=== PATIENT | male | born 1955 | race African-American/Black ===

== ENCOUNTER 2017-07-27 08:00 | Inpatient (IN) | payer OTHER ==
[2017-07-15 14:32] VITALS: BMI 40.6
[2017-07-27] MEDS ORDERED: oxyCODONE HCL 10 MG SUSTAINED ACTING TABLET ONE (10:52)
[2017-07-27] MEDS ORDERED: CELECOXIB 200 MG CAPSULE ONE (10:53)
[2017-07-27] MEDS ORDERED: oxyCODONE HCL 10 MG SUSTAINED ACTING TABLET PO ONE (12:15)
[2017-07-27] MEDS ORDERED: ROPIVICAINE 0.2%/MORPH PF/KETOROLAC - 51ML DISP.SYRINGE IA ONE (12:15)
[2017-07-27] MEDS ORDERED: CEFAZOLIN 2 GM in DEXTROSE 5%-WATER - 50 ML IVPB ONE (12:15)
[2017-07-27] MEDS ORDERED: VANCOMYCIN 1,000 MG in DEXTROSE 5%-WATER - 250 ML IVPB ONE (12:15)
[2017-07-27] MEDS ORDERED: CELECOXIB 200 MG CAPSULE PO ONE (12:15)
[2017-07-27] MEDS ORDERED: TRANEXAMIC ACID 1000 MG/10 ML VIAL IVPUSH ONE (12:15)
[2017-07-27] MEDS ORDERED: DEXAMETHASONE SOD PHOSPHATE/PF 10 MG/ML SDV ONE (12:48)
[2017-07-27] MEDS ORDERED: MIDAZOLAM HCL 2 MG/2 ML SINGLE DOSE VIAL ONE ×4 (12:48→16:17)
[2017-07-27] MEDS ORDERED: BUPIVACAINE HCL/PF (5 MG/ML) 30 ML VIAL IJ ONE (12:49)
[2017-07-27] MEDS: DEXTROSE 50%-WATER 25 GM/50 ML DISP.SYRIN IVPUSH ONE ×2 (13:50→19:35)
[2017-07-27] MEDS ORDERED: DEXTROSE 50%-WATER 25 GM/50 ML DISP.SYRIN ONE (13:52)
[2017-07-27] MEDS ORDERED: TRANEXAMIC ACID 1000 MG/10 ML VIAL ONE (15:31)
[2017-07-27] MEDS ORDERED: ePHEDrine SULFATE 50 MG/1 ML AMPULE ONE (16:09)
[2017-07-27] MEDS ORDERED: ceFAZolin SODIUM 1 GM VIAL ONE ×3 (16:13→17:23)
[2017-07-27] MEDS ORDERED: VANCOMYCIN 1,000 MG VIAL (RESTRICTED TO ID ONLY) ONE (16:20)
[2017-07-27] MEDS ORDERED: PROPOFOL 20 ML ONE ×3 (16:51→17:20)
--- NOTE | 2017-07-27 18:39 | OP ---
Operative Note - Note: Operative Date: 07/27/17 Pre-Operative Diagnosis: Right hip DJD Operation: Right total hip replacement Implants: [place]. Cup - Tritanium, 56mm, 1 x 25mm screw. Poly - 28mm, neutral. Stem - SecureFit Advanced, #6, 127 deg, high offset. Head - 28mm, Biolox/ceramic, +4mm Post-Operative Diagnosis: Same as Pre-op Surgeon: Medardo Randolph Roastmaster: Senthil Randolph Anesthesia: Spinal Specimens Removed: Right femoral head Estimated Blood Loss (mls): 250 Operative Report Dictated: Yes
[2017-07-27] MEDS ORDERED: MAG HYDROX/AL HYDROX/SIMETH 30 ML UNIT-DOSE CUP PO PRN (18:40)
[2017-07-27] MEDS ORDERED: ONDANSETRON 4 MG/2 ML VIAL IVPUSH PRN ×2 (18:40→18:44)
[2017-07-27] MEDS ORDERED: MAGNESIUM HYDROX 2400MG/30ML ORAL SUSPENSION 30 ML CUP PO PRN (18:40)
[2017-07-27] MEDS ORDERED: oxyCODONE HCL 5 MG TABLET PO PRN (18:44)
[2017-07-27] MEDS ORDERED: LACTATED RINGERS SOLUTION 1,000 ML IV SCH ×2 (18:45)
[2017-07-27] MEDS: ACETAMINOPHEN 1000 MG/100 ML VIAL (NON FORMULARY) IVPB ONE ×2 (19:15→19:39)
--- NOTE | 2017-07-27 21:05 | OP ---
DATE OF OPERATION: 07/27/2017 SURGEON: Medardo Randolph MD ASSOCIATE PROFESSOR OF THEOLOGY: Senthil Randolph MD PREOPERATIVE DIAGNOSIS: Osteoarthritis, right hip. POSTOPERATIVE DIAGNOSIS: Osteoarthritis, right hip. OPERATION PERFORMED: Right cementless total hip arthroplasty (Ela). ANESTHESIA: Spinal/epidural with general anesthesia. ANTIBIOTICS GIVEN: Kefzol 2 g, vancomycin 1 g, Kefzol 1 g given at the time of the seating of femoral components. OPERATION IN DETAIL: The patient was correctly identified, brought into the operating room. Timeout was called. The right lower extremity was prepped, free draped in the routine manner with Betadine scrub solution, wiped off with alcohol, DuraPrep applied. A free drape applied. Imaging was available for intraoperative evaluation. The patient has left-sided tibial bowing and dysplasia. The incision was centered over the greater trochanter. The distal limb started anteriorly at the anterior margin of the femur. The posterior limb ended in line with the posterior corner of the trochanter. The fascia was opened. After achieving hemostasis in the subcutaneous plane, the fascia was opened. The hip abductor mechanism identified. Using an anterior-biased, direct lateral approach, with difficulty, we had unusual anatomical findings with protuberant osteophyte over the anterior greater trochanter, but more importantly, once the hip was dissected out and the capsule lifted off the hip from the superolateral aspect of the acetabulum to the inferomedial aspect of the acetabulum, including 2 radial cuts made into the capsule, the hip was dislocated with flexion, adduction, and external rotation maneuver with no complications, but I clearly noted that the hip had almost 60-degree anteverted dysplasia, severe osteoarthritis encountered. With the tibia held in neutral, that is vertical, the neck cut was made in accordance with the principles of Charnley, and this was approximately 1 cm above the lesser trochanter. The hip was then extricated out of the appropriate bone bed. The acetabulum was exposed with an anterior, posterior, superolateral as well as inferior retractor. All labral tissue was resected. Reaming was to a size 55, and a size 56 Ela Tritanium cup inserted. Once 25-mm screw helped to augment fixation, fixation was Press-Fit fixation which was excellent, but my choice was to seat a screw because of this man's large stature and the subtle osteopenia of the bone bed. A solid fixation achieved with that screw. The liner for 28-mm articulation was then inserted. The cup seating was uncomplicated. The cup was closed at about 45 degrees and about 15 degrees of anteversion. Some soft tissue rub anteriorly was noted on the anterior lip of the cup. Some posterior remaining bone of the posterior ischium was resected because of predicted impingement on the back of the trunnion. The hip was adducted, externally rotated. The hip abductor mechanism was held out of harm's way with 2 sharp Hohmanns. A rongeur was utilized to enter the trochanter and then followed with an appropriate box cut. With difficulty, the canal was found. Luckily and happy to report that the alignment of the dysplastic proximal femur did line up with the femoral area. The reaming was to size 6, and a size 6 Secur-Fit Advanced stem was inserted after appropriate broaching and trialing. A +4/28-mm ceramic head applied to the trunnion after all trialing was achieved. The stem was a high-offset stem. Equal leg length achieved on the table. Full range of movement. No complications with internal rotation, as well as extension and external rotation. The wounds were thoroughly lavaged throughout the procedure. With great satisfaction of seating and implant positioning, we closed the wound as well as the hip abductor mechanism 1 Vicryl, fascia 1 Vicryl, subcutaneous 1 and 2-0 Vicryl, skin cain. No drains. Operation went well. No complications. MD SOHAM Martinez/[id number]
[2017-07-27] MEDS: oxyCODONE HCL 5 MG TABLET PO PRN (21:10)
--- NOTE | 2017-07-27 21:13 | CONSULT ---
Consultation: REQUESTING PROVIDER: Dr. Medardo Randolph CONSULT REQUEST: We have been asked to medically evaluate this patient following right total hip replacement on 07/27/17. HISTORY OF PRESENT ILLNESS: 61 year-old male with a PMH significant for HTN, HLD, afib/aflutter, NIDDM, and obsesity. Underwent right total hip replacement earlier today. REVIEW OF SYSTEMS: CONSTITUTIONAL: Absent: fever, chills, diaphoresis, generalized weakness, malaise, loss of appetite, weight change HEENT: Absent: rhinorrhea, nasal congestion, throat pain, throat swelling, difficulty swallowing, mouth swelling, ear pain, eye pain, visual changes CARDIOVASCULAR: Present: feeling dizzy, nauseous, diaphoretic post-operatively Absent: chest pain, syncope, palpitations, irregular heart rate, lightheadedness , peripheral edema RESPIRATORY: Absent: cough, shortness of breath, dyspnea with exertion, orthopnea, wheezing, stridor, hemoptysis GASTROINTESTINAL: Absent: abdominal pain, abdominal distension, nausea, vomiting, diarrhea, constipation, melena, hematochezia GENITOURINARY: Absent: dysuria, frequency, urgency, hesitancy, hematuria, flank pain, genital pain MUSCULOSKELETAL: Absent: myalgia, arthralgia, joint swelling, back pain, neck pain SKIN: Absent: rash, itching, pallor HEMATOLOGIC/IMMUNOLOGIC: Absent: easy bleeding, easy bruising, lymphadenopathy, frequent infections ENDOCRINE: Absent: unexplained weight gain, unexplained weight loss, heat intolerance, cold intolerance NEUROLOGIC: Absent: headache, focal weakness or paresthesias, dizziness, unsteady gait, seizure, mental status changes, bladder or bowel incontinence PSYCHIATRIC: Absent: anxiety, depression, suicidal or homicidal ideation, hallucinations. PHYSICAL EXAMINATION Vital Signs - 24 hr 07/27/17 07/27/17 07/27/17 11:59 12:04 12:08 Temperature 98.3 F 98.3 F Pulse Rate 62 62 Respiratory 18 18 Rate Blood Pressure 134/74 134/74 O2 Sat by Pulse 99 Oximetry (%) 07/27/17 07/27/17 07/27/17 12:13 18:30 18:35 Temperature 98.3 F 98.2 F 98.2 F Pulse Rate 62 42 L 43 L Respiratory 18 20 18 Rate Blood Pressure 134/74 143/51 144/57 O2 Sat by Pulse 97 98 Oximetry (%) 07/27/17 07/27/17 07/27/17 18:40 18:45 19:00 Temperature 98.2 F 98.2 F 98.2 F Pulse Rate 44 L 43 L 38 L Respiratory 18 18 15 Rate Blood Pressure 150/52 143/59 147/55 O2 Sat by Pulse 98 96 96 Oximetry (%) 07/27/17 07/27/17 07/27/17 19:15 19:30 19:45 Temperature 98.2 F 98.2 F 98.2 F Pulse Rate 38 L 38 L 38 L Respiratory 21 18 18 Rate Blood Pressure 146/55 142/59 154/56 O2 Sat by Pulse 96 96 96 Oximetry (%) 07/27/17 07/27/17 19:55 20:06 Temperature 98.2 F Pulse Rate 37 L Respiratory 22 Rate Blood Pressure 141/61 O2 Sat by Pulse 96 Oximetry (%) GENERAL: Awake, alert, and fully oriented. Nauseous, vomiting. Diaphoretic. HEAD: Normal with no signs of trauma. EYES: Pupils equal, round and reactive to light, extraocular movements intact, sclera anicteric, conjunctiva clear. No lid lag. EARS, NOSE, THROAT: Ears normal, nares patent, oropharynx clear without exudates. Moist mucous membranes. NECK: Normal range of motion, supple without lymphadenopathy, JVD, or masses. LUNGS: Anterior breath sounds equal, clear to auscultation bilaterally. No wheezes, and no crackles. No accessory muscle use. HEART: Regular rate and rhythm, normal S1 and S2 ABDOMEN: Soft, nontender, not distended, normoactive bowel sounds, no guarding, no rebound, no masses. MUSCULOSKELETAL: Normal range of motion at all joints. No bony deformities or tenderness. No CVA tenderness. UPPER EXTREMITIES: 2+ pulses, warm, well-perfused. No cyanosis. No clubbing. Cap refill <2 seconds. No peripheral edema. LOWER EXTREMITIES: Right hip surgical dressing c/d/i NEUROLOGICAL: Cranial nerves II-XII intact. Normal speech. Active Medications Generic Name Dose Route Start Last Admin Trade Name Freq PRN Reason Stop Dose Admin Al Hydroxide/Mg Hydroxide 30 ml 07/27/17 18:40 Mylanta Oral Suspension - PO Q4H PRN DYSPEPSIA Apixaban 5 mg 07/27/17 22:00 Eliquis - PO BID [facility] Atorvastatin Calcium 10 mg 07/27/17 22:00 Lipitor - PO HS [facility] Diltiazem HCl 480 mg 07/28/17 10:00 Cardizem Cd - PO DAILY [facility] Fentanyl 50 mcg 07/27/17 18:44 Sublimaze Injection - IVPUSH [id number] PRN PAIN Lactated Ringer's 1,000 mls @ 75 mls/hr 07/27/17 18:45 07/27/17 19:41 Lactated Ringers Solution IV Not Given ASDIR [facility] Cefazolin Sodium/Dextrose 2 gm in 50 mls @ 100 mls/hr 07/28/17 02:00 Ancef 2 Gm Premixed Ivpb - IVPB 07/29/17 01:59 Q8H-IV [facility] Lactated Ringer's 1,000 mls @ 125 mls/hr 07/27/17 18:45 07/27/17 19:39 Lactated Ringers Solution IV 07/28/17 06:00 125 mls/hr ASDIR [facility] Administration Magnesium Hydroxide 30 ml 07/27/17 18:40 Milk Of Magnesia - PO DAILY PRN CONSTIPATION Ondansetron HCl 4 mg 07/27/17 18:44 Zofran Injection IVPUSH Q6H PRN NAUSEA AND/OR VOMITING Ondansetron HCl 4 mg 07/27/17 18:40 Zofran Injection IVPUSH Q6H PRN NAUSEA Oxycodone HCl 5 mg 07/27/17 18:44 Roxicodone - PO Q3H PRN PAIN LEVEL 1-5 Oxycodone HCl 10 mg 07/27/17 18:44 Roxicodone - PO Q3H PRN PAIN LEVEL 6-10 Oxycodone HCl 10 mg 07/27/17 22:00 Oxycontin - PO 07/30/17 18:45 BID [facility] Pantoprazole Sodium 40 mg 07/28/17 10:00 Protonix - PO DAILY [facility] Senna/Docusate Sodium 1 tablet 07/27/17 22:00 Pericolace - PO BID [facility] ASSESSMENT/PLAN: 61 year-old male with a PMH significant for HTN, HLD, afib/aflutter, NIDDM, and obsesity. Underwent right total hip replacement earlier today. Afib/aflutter Bradycardia --patient was seen and evaluated preoperatively on 07/21, architectural associate recommended amiodarone 200mg daily, Toprol XL 25mg daily and diltiazem 480mg daily; patient states he has not taken the amiodarone or the Toprol XL, but he has taken diltiazem 480mg daily, last dose this morning --pre-induction HR 50; dropped to 30s in PACU; this evening ECG shows junctional rhythm @ 44bpm; complaining of mild dizziness --BP stable 150s/70s --pacer pads placed on patient; Zoll at bedside --hold all vickie blocking agents; hold amiodarone --discussed with Dr. [facility] architectural associate --transfer to telemetry at [facility] --called and LM for Dr. Randolph Hypoglycemia --FS 42 after surgery; amp D50 given and OJ; FS improved 240 Hypertension --BP stable NIDDM --Novolog sliding scale coverage Fluids: LR @ 125mL/hr DVT prophylaxis: Eliquis dosed this evening. Visit type - Emergency Visit Emergency Visit: Yes ED Registration Date: 07/27/17 Care time: The patient presented to the Emergency Department on the above date and was hospitalized for further evaluation of their emergent condition. - New Patient This patient is new to me today: Yes Date on this admission: 07/27/17 - Critical Care Critical Care patient: No
[2017-07-27] MEDS ORDERED: APIXABAN 5 MG TABLET PO SCH (22:00)
[2017-07-27] MEDS ORDERED: oxyCODONE HCL 10 MG SUSTAINED ACTING TABLET PO SCH (22:00)
[2017-07-27] MEDS ORDERED: BUDESONIDE/FORMETEROL FUMARATE 160/4.5 mcg INHALER IH SCH (22:00)
[2017-07-27] MEDS ORDERED: ATORVASTATIN CA 10 MG TABLET (FP) PO SCH (22:00)
[2017-07-27] MEDS ORDERED: ASPIRIN 325 MG TABLET PO SCH (22:00)
[2017-07-27] MEDS ORDERED: SENNOSIDES/DOCUSATE COMBO (SENNA PLUS) TABLET (UD) PO SCH (22:00)
[2017-07-28] MEDS: oxyCODONE HCL 5 MG TABLET PO PRN ×2 (01:55→16:50)
[2017-07-28] MEDS ORDERED: CEFAZOLIN 2 GM/D5W 2 GM/50 ML ML IVPB SCH (02:00)
[2017-07-28 07:10] LABS: HEMATOCRIT 35.5 % (35.4-49); HEMOGLOBIN 11.5 GM/dL (11.7-16.9); MCHC 32.6 g/dl (32.0-35.9); MEAN CELL VOLUME 92.1 fl (80-96); MEAN PLT VOLUME 10.2 fl (7.5-11.1); PLATELET COUNT 229 K/MM3 (134-434); RBC 3.85 M/mm3 (4.00-5.60); RDW 15.1 % (11.9-15.9); WHITE BLOOD COUNT 10.5 K/mm3 (4.0-10.0)
[2017-07-28] MEDS ORDERED: LACTATED RINGERS SOLUTION 1,000 ML IV SCH (07:42)
[2017-07-28] MEDS ORDERED: MAG HYDROX/AL HYDROX/SIMETH 30 ML UNIT-DOSE CUP PO PRN (07:42)
[2017-07-28] MEDS ORDERED: ONDANSETRON 4 MG/2 ML VIAL IVPUSH PRN ×2 (07:42)
[2017-07-28] MEDS ORDERED: MAGNESIUM HYDROX 2400MG/30ML ORAL SUSPENSION 30 ML CUP PO PRN (07:42)
[2017-07-28] MEDS ORDERED: FERROUS SO4 325 MG TABLET (FP) PO SCH (08:00)
[2017-07-28] MEDS ORDERED: ONDANSETRON 4 MG/2 ML VIAL IVPUSH ONE (09:30)
[2017-07-28 09:40] LABS: ANION GAP 7 (8-16); BLOOD UREA NITROGEN 20 mg/dL (7-18); CALCIUM 8.6 mg/dL (8.5-10.1); CHLORIDE 110 mmol/L (98-107); CO2 25 mmol/L (21-32); CREATININE 1.3 mg/dL (0.7-1.3); GLUCOSE,RANDOM 220 mg/dL (74-106); SODIUM 142 mmol/L (136-145)
[2017-07-28] MEDS ORDERED: PANTOPRAZOLE 40 MG TABLET (FP) PO SCH (10:00)
[2017-07-28] MEDS ORDERED: AMIODARONE HCL 200 MG TABLET (FP) PO SCH ×2 (10:00)
[2017-07-28] MEDS ORDERED: METOPROLOL SUCCINATE 25 MG TAB.SR.24H (FP) PO SCH ×2 (10:00)
[2017-07-28] MEDS ORDERED: PT OWN MED DRAWER 7, Y5N ONE ×3 (10:44→16:47)
[2017-07-28] MEDS: SENNOSIDES/DOCUSATE COMBO (SENNA PLUS) TABLET (UD) PO SCH ×2 (10:46→22:35)
[2017-07-28] MEDS: PANTOPRAZOLE 40 MG TABLET (FP) PO SCH (10:46)
[2017-07-28] MEDS: APIXABAN 5 MG TABLET PO SCH ×2 (10:46→22:53)
[2017-07-28] MEDS: oxyCODONE HCL 10 MG SUSTAINED ACTING TABLET PO SCH ×2 (10:50→22:34)
[2017-07-28] MEDS: FERROUS SO4 325 MG TABLET (FP) PO SCH ×2 (10:50→17:15)
[2017-07-28] MEDS: INSULIN SLIDING SCALE (NOVOLOG) 1 VIAL SQ SCH ×2 (11:58→16:57)
--- NOTE | 2017-07-28 13:06 | EKG ---
Test Reason : Blood Pressure : / mmHG Vent. Rate : 044 BPM Atrial Rate : 000 BPM P-R Int : 000 ms QRS Dur : 102 ms QT Int : 484 ms P-R-T Axes : 000 042 063 degrees QTc Int : 413 ms JUNCTIONAL BRADYCARDIA ABNORMAL ECG NO PREVIOUS ECGS AVAILABLE Confirmed by FARIBA FAJARDO MD ([id number]) on 07/28/2017 1:06:25 PM Referred By: Medardo Randolph Confirmed By:FARIBA FAJARDO MD
--- NOTE | 2017-07-28 13:24 | CON.CARD ---
Consult Consult Specialty:: cardiology Referred by:: Geno Reason for Consultation:: Bradycardia - History of Present Illness Chief Complaint: Status post hip fracture and surgery. History of Present Illness: The patient is a 61-year-old morbidly obese man, with a history of diabetes, hypertension, hyperlipidemia, paroxysmal atrial fibrillation/flutter, status post right total hip replacement on 07/27/17, was found to be bradycardic. The surgery went uneventful. The patient is currently comfortable in no apparent distress. In sinus bradycardia in the low 50s. Hemodynamically stable and comfortable. - History Source History Provided By: Patient, Family Member, Medical Record Limitations to Obtaining History: No Limitations - Past Medical History Cardio/Vascular: Yes: AFIB, HTN - Alcohol/Substance Use Hx Alcohol Use: No - Smoking History Smoking history: Former smoker Have you smoked in the past 12 months: Yes Aproximately how many cigarettes per day: 15 If you are a former smoker, when did you quit?: 06/17 Home Medications - Allergies Allergies/Adverse Reactions: Allergies Allergy/AdvReac Type Severity Reaction Status Date / Time lisinopril Allergy Severe Swelling Verified 07/15/17 14:03 - Home Medications Home Medications: Ambulatory Orders Apixaban [Eliquis] 5 mg PO BID 07/15/17 Atorvastatin Ca [Lipitor] 10 mg PO DAILY 07/15/17 Diltiazem Cd [Cardizem Cd -] 480 mg PO DAILY 07/15/17 Ferrous Sulfate [Feosol] 325 mg PO BID 07/15/17 Glyburide 10 mg PO DAILY 07/15/17 Metformin HCl [Glucophage] 1,000 mg PO BID 07/15/17 Sitagliptin Phosphate [Januvia] 100 mg PO DAILY 07/15/17 Amiodarone HCl 200 mg PO DAILY 07/27/17 Budesonide/Formeterol Fumarate [SYMBICORT 160/4.5mcg -] 1 inh PO BID 07/27/17 Metoprolol Succinate [Toprol Xl] 25 mg PO DAILY 07/27/17 Review of Systems - Review of Systems Constitutional: reports: No Symptoms Eyes: reports: No Symptoms HENT: reports: No Symptoms Neck: reports: No Symptoms Cardiovascular: reports: No Symptoms Respiratory: reports: No Symptoms Gastrointestinal: reports: No Symptoms Genitourinary: reports: No Symptoms Breasts: reports: No Symptoms Reported Musculoskeletal: reports: No Symptoms Integumentary: reports: No Symptoms Neurological: reports: No Symptoms Endocrine: reports: No Symptoms Hematology/Lymphatic: reports: No Symptoms Psychiatric: reports: No Symptoms - Risk Factors Known Risk Factors: Yes: Diabetes Mellitus, Hypercholesterolemia, Hypertension Vital Signs: Vital Signs Temperature 98.4 F 07/28/17 10:00 Pulse Rate 45 L 07/28/17 12:00 Respiratory Rate 20 07/28/17 12:00 Blood Pressure 144/78 07/28/17 12:00 O2 Sat by Pulse Oximetry (%) 99 07/28/17 08:11 Constitutional: Yes: No Distress, Calm, Obese Eyes: Yes: WNL, Conjunctiva Clear HENT: Yes: WNL, Atraumatic, Normocephalic Neck: Yes: WNL, Supple, Trachea Midline Respiratory: Yes: WNL, Regular, CTA Bilaterally Gastrointestinal: Yes: WNL, Normal Bowel Sounds, Soft, Abdomen, Obese Renal/: Yes: WNL Cardiovascular: Yes: WNL, Regular Rate and Rhythm, Bradycardia JVD: No Carotid Bruit: No PMI: Non-Displaced Heart Sounds: Yes: S1, S2 Murmur: Yes: Systolic Murmur, Grade 2 Musculoskeletal: Yes: WNL Extremities: Yes: WNL Edema: No Peripheral Pulses WNL: Yes Peripheral Pulses: 2+ Left Carotid, 2+ Right Carotid, 2+ Left Femoral, 2+ Right Femoral, 2+ Left Popliteal, 2+ Right Popliteal, 2+ Left Doralis Pedis, 2+ Right Dorsalis Pedis Integumentary: Yes: WNL Neurological: Yes: WNL ...Motor Strength: WNL Psychiatric: Yes: WNL - Other Data Labs, Other Data: CBC, BMP 07/28/17 05:10 07/28/17 05:10 Assessment/Plan Morbidly obese man with a history of paroxysmal atrial fibrillation/flutter who was on amiodarone, metoprolol and Cardizem. The patient is currently status post right total hip replacement. The surgery went uneventful. He had periods of marked bradycardias and junctional rhythms. Currently in sinus bradycardia, comfortable, and hemodynamically stable. Please discontinue metoprolol and Cardizem. Would decrease amiodarone to 100 mg daily. Start Procardia XL 30 mg daily for better blood pressure control. Please obtain thyroid function tests. Continue cardiac monitoring for the time being. No need for further cardiac workup nor testing of this point. The patient is stable.
[2017-07-28] MEDS: CEFAZOLIN 2 GM/D5W 2 GM/50 ML ML IVPB SCH ×2 (13:25→17:11)
[2017-07-28] MEDS: BUDESONIDE/FORMETEROL FUMARATE 160/4.5 mcg INHALER IH SCH ×2 (13:42→22:34)
--- NOTE | 2017-07-28 15:57 | PN ---
Physical Exam: SUBJECTIVE: Patient seen and examined oob to chair. Feels well, pain is minimal. Denies chest pain, palpitations, SOB, lightheadedness. OBJECTIVE: Vital Signs Period Temp Pulse Resp BP Sys/Pineda Pulse Ox Last 24 Hr 98.0 F-98.4 F 37-49 15-22 93-159/51-87 96-100 GENERAL: Awake, alert, and fully oriented. LUNGS: Breath sounds CTA. HEART: Regular rate and rhythm, S1, S2 ABDOMEN: Soft, nontender, not distended, normoactive bowel sounds, no guarding, no rebound, no masses. MUSCULOSKELETAL: Normal range of motion at all joints. No bony deformities or tenderness. No CVA tenderness. UPPER EXTREMITIES: 2+ pulses, warm, well-perfused. No cyanosis. No clubbing. Cap refill <2 seconds. No peripheral edema. LOWER EXTREMITIES: Right hip surgical dressing c/d/i NEUROLOGICAL: Cranial nerves II-XII intact. Normal speech. Laboratory Results - last 24 hr 07/27/17 07/27/17 07/27/17 12:25 18:40 21:20 WBC RBC Hgb Hct MCV MCH MCHC RDW Plt Count MPV Sodium Potassium Chloride Carbon Dioxide Anion Gap BUN Creatinine POC Glucometer 72 211 Random Glucose Calcium HIV 1&2 Antibody Screen Negative HIV P24 Antigen Negative 07/27/17 07/28/17 07/28/17 22:47 05:10 05:10 WBC 10.5 H RBC 3.85 L Hgb 11.5 L Hct 35.5 MCV 92.1 MCH 30.0 MCHC 32.6 RDW 15.1 Plt Count 229 MPV 10.2 Sodium 142 Potassium 5.0 Chloride 110 H Carbon Dioxide 25 Anion Gap 7 L BUN 20 H Creatinine 1.3 POC Glucometer 196 Random Glucose 220 H Calcium 8.6 HIV 1&2 Antibody Screen HIV P24 Antigen Active Medications Generic Name Dose Route Start Last Admin Trade Name Freq PRN Reason Stop Dose Admin Al Hydroxide/Mg Hydroxide 30 ml 07/28/17 07:42 Mylanta Oral Suspension - PO Q4H PRN DYSPEPSIA Apixaban 5 mg 07/28/17 10:00 07/28/17 10:46 Eliquis - PO 5 mg BID [facility] Administration Atorvastatin Calcium 10 mg 07/28/17 22:00 Lipitor - PO HS [facility] Budesonide/Formoterol Fumarate 1 puff 12/28/17 10:00 07/28/17 13:42 Symbicort 160/4.5mcg - IH 1 inh BID [facility] Administration Ferrous Sulfate 325 mg 07/28/17 08:00 07/28/17 10:50 Feosol - PO 325 mg BIDWM T[facility] Administration Cefazolin Sodium/Dextrose 2 gm in 50 mls @ 100 mls/hr 07/28/17 10:00 13:25 Ancef 2 Gm Premixed Ivpb - IVPB 07/29/17 01:59 100 mls/hr Q8H-IV [facility] Administration Insulin Aspart 1 vial 07/28/17 11:00 07/28/17 11:58 Novolog Vial Sliding Scale - SQ 4 units TIDAC [facility] Administration Protocol Magnesium Hydroxide 30 ml 07/28/17 07:42 Milk Of Magnesia - PO DAILY PRN CONSTIPATION Nifedipine 30 mg 07/28/17 16:00 Procardia Xl - PO DAILY [facility] Ondansetron HCl 4 mg 07/28/17 07:42 Zofran Injection IVPUSH Q6H PRN NAUSEA Oxycodone HCl 10 mg 07/28/17 07:42 Roxicodone - PO Q3H PRN PAIN LEVEL 6-10 Oxycodone HCl 5 mg 07/28/17 07:42 Roxicodone - PO Q3H PRN PAIN LEVEL 1-5 Oxycodone HCl 10 mg 07/28/17 10:00 07/28/17 10:50 Oxycontin - PO 07/30/17 18:45 10 mg BID [facility] Administration Pantoprazole Sodium 40 mg 07/28/17 10:00 07/28/17 10:46 Protonix - PO 40 mg DAILY [facility] Administration Senna/Docusate Sodium 1 tablet 07/28/17 10:00 07/28/17 10:46 Pericolace - PO 1 tablet BID [facility] Administration ASSESSMENT/PLAN 61 year-old male with a PMH significant for HTN, HLD, afib/aflutter, NIDDM, and obsesity. Underwent right total hip replacement 07/28. Total right hip replacement --POD #1 --minimal pain --ambulated with PT Afib/aflutter Bradycardia --patient was seen and evaluated preoperatively on 07/21, dog food shredder operator recommended amiodarone 200mg daily, Toprol XL 25mg daily and diltiazem 480mg daily; patient did not take the amiodarone or the Toprol XL but did take diltiazem, last dose on morning of surgery --pre-induction HR 50; dropped to 30s in PACU; last night ECG junctional rhythm @ 44bpm --BP has remained stable --d/c Toprol XL and diltiazem; start nifedipine for BP control --TFTs pending Hypoglycemia --resolved Hypertension --nifedipine NIDDM --Novolog sliding scale coverage Fluids: PO intake adequate Electrolytes: replete as indicated Nutrition: diabetic, low sodium DVT prophylaxis: continue Eliquis. Visit type - Emergency Visit Emergency Visit: Yes ED Registration Date: 07/27/17 Care time: The patient presented to the Emergency Department on the above date and was hospitalized for further evaluation of their emergent condition. - New Patient This patient is new to me today: No - Critical Care Critical Care patient: No
[2017-07-28] MEDS: NIFEdipine E.R. 30 MG TABLET (FP) PO SCH (16:50)
[2017-07-28] MEDS: ATORVASTATIN CA 10 MG TABLET (FP) PO SCH (22:53)
[2017-07-29] MEDS: oxyCODONE HCL 5 MG TABLET PO PRN ×3 (02:58→17:56)
[2017-07-29] MEDS: INSULIN SLIDING SCALE (NOVOLOG) 1 VIAL SQ SCH ×3 (06:13→16:48)
[2017-07-29 06:47] LABS: HEMATOCRIT 34.4 % (35.4-49); HEMOGLOBIN 11.2 GM/dL (11.7-16.9); MCH 29.8 pg (25.7-33.7); MCHC 32.6 g/dl (32.0-35.9); MEAN CELL VOLUME 91.4 fl (80-96); MEAN PLT VOLUME 10.5 fl (7.5-11.1); PLATELET COUNT 198 K/MM3 (134-434); RBC 3.76 M/mm3 (4.00-5.60); RDW 15.1 % (11.9-15.9); WHITE BLOOD COUNT 10.3 K/mm3 (4.0-10.0)
--- NOTE | 2017-07-29 07:53 | EKG ---
Test Reason : Blood Pressure : / mmHG Vent. Rate : 047 BPM Atrial Rate : 208 BPM P-R Int : 000 ms QRS Dur : 104 ms QT Int : 474 ms P-R-T Axes : 000 045 056 degrees QTc Int : 419 ms Likely JUNCTIONAL RHYTHM NON-SPECIFIC INTRA-VENTRICULAR CONDUCTION BLOCK WHEN COMPARED WITH ECG OF 27-JUL-2017 21:54, NO SIGNIFICANT CHANGE WAS FOUND Confirmed by MD JACKSON MARJORY ([id number]) on 07/28/2017 4:26:20 PM Also confirmed by MD JACKSON MARJORY [id number]), health editor BK WATSON ([id number]) on 07/29/2017 7:52:36 AM Referred By: Medardo Randolph Confirmed By:DEBORAH JACKSON MD
[2017-07-29] MEDS: oxyCODONE HCL 10 MG SUSTAINED ACTING TABLET PO SCH ×2 (09:42→22:03)
[2017-07-29] MEDS: SENNOSIDES/DOCUSATE COMBO (SENNA PLUS) TABLET (UD) PO SCH ×2 (09:42→22:03)
[2017-07-29] MEDS: NIFEdipine E.R. 30 MG TABLET (FP) PO SCH (09:42)
[2017-07-29] MEDS: PANTOPRAZOLE 40 MG TABLET (FP) PO SCH (09:42)
[2017-07-29] MEDS: BUDESONIDE/FORMETEROL FUMARATE 160/4.5 mcg INHALER IH SCH ×2 (09:43→22:04)
[2017-07-29] MEDS: APIXABAN 5 MG TABLET PO SCH ×2 (09:43→22:03)
[2017-07-29] MEDS: FERROUS SO4 325 MG TABLET (FP) PO SCH ×2 (09:43→16:48)
--- NOTE | 2017-07-29 11:41 | PN ---
Progress Note, Physician Chief Complaint: Bradycardia History of Present Illness: The patient is comfortable in bed. Denies chest pains, shortness of breath, palpitations. - Current Medication List Current Medications: Active Medications Al Hydroxide/Mg Hydroxide (Mylanta Oral Suspension -) 30 ml PO Q4H PRN PRN Reason: DYSPEPSIA Apixaban (Eliquis -) 5 mg PO BID [facility] Last Admin: 07/29/17 09:43 Dose: 5 mg Atorvastatin Calcium (Lipitor -) 10 mg PO HS [facility] Last Admin: 07/28/17 22:53 Dose: 10 mg Budesonide/Formoterol Fumarate (Symbicort 160/4.5mcg -) 1 puff IH BID [facility] Last Admin: 07/29/17 09:43 Dose: 1 inh Ferrous Sulfate (Feosol -) 325 mg PO BIDWM [facility] Last Admin: 07/29/17 09:43 Dose: 325 mg Insulin Aspart (Novolog Vial Sliding Scale -) 1 vial SQ TIDAC [facility] PRN Reason: Protocol Last Admin: 07/29/17 06:13 Dose: Not Given Magnesium Hydroxide (Milk Of Magnesia -) 30 ml PO DAILY PRN PRN Reason: CONSTIPATION Nifedipine (Procardia Xl -) 30 mg PO DAILY [facility] Last Admin: 07/29/17 09:42 Dose: 30 mg Ondansetron HCl (Zofran Injection) 4 mg IVPUSH Q6H PRN PRN Reason: NAUSEA Oxycodone HCl (Roxicodone -) 10 mg PO Q3H PRN PRN Reason: PAIN LEVEL 6-10 Oxycodone HCl (Roxicodone -) 5 mg PO Q3H PRN PRN Reason: PAIN LEVEL 1-5 Last Admin: 07/29/17 02:58 Dose: 5 mg Oxycodone HCl (Oxycontin -) 10 mg PO BID [facility] Stop: 07/30/17 18:45 Last Admin: 07/29/17 09:42 Dose: 10 mg Pantoprazole Sodium (Protonix -) 40 mg PO DAILY [facility] Last Admin: 07/29/17 09:42 Dose: 40 mg Senna/Docusate Sodium (Pericolace -) 1 tablet PO BID [facility] Last Admin: 07/29/17 09:42 Dose: 1 tablet - Objective Vital Signs: Vital Signs Temperature 98.1 F 07/29/17 10:00 Pulse Rate 74 07/29/17 10:00 Respiratory Rate 20 07/29/17 10:00 Blood Pressure 154/75 07/29/17 10:00 O2 Sat by Pulse Oximetry (%) 98 07/29/17 10:00 Constitutional: Yes: No Distress, Calm, Obese Eyes: Yes: WNL, Conjunctiva Clear HENT: Yes: WNL, Atraumatic, Normocephalic Neck: Yes: WNL, Supple, Trachea Midline Cardiovascular: Yes: WNL, Regular Rate and Rhythm, S1, S2 Respiratory: Yes: WNL, Regular, CTA Bilaterally Gastrointestinal: Yes: WNL, Normal Bowel Sounds, Soft ...Rectal Exam: Yes: Deferred Genitourinary: Yes: WNL Breast(s): Yes: WNL Musculoskeletal: Yes: WNL Extremities: Yes: WNL Edema: No Peripheral Pulses WNL: Yes Peripheral Pulses: Left Radial: 2+, Right Radial: 2+, Left Doralis Pedis: 2+, Right Dorsalis Pedis: 2+, Left Femoral: 2+, Right Femoral: 2+ Integumentary: Yes: WNL Wound/Incision: Yes: Clean/Dry Neurological: Yes: WNL Labs: CBC, BMP 07/29/17 05:10 07/28/17 05:10 Assessment/Plan The patient has been stable from the cardiac standpoint. He is comfortable and symptom free. The patient is in sinus rhythm. Frequent APCs on telemetry. Please continue current care. There is no need for further cardiac monitoring at this point. There is no need for further cardiac workup at this point. Please do not hesitate to call us PRN.
[2017-07-29] MEDS ORDERED: dilTIAZem HCL 30 MG TABLET (FP) PO SCH (18:00)
[2017-07-29] MEDS: ATORVASTATIN CA 10 MG TABLET (FP) PO SCH (22:04)
[2017-07-30] MEDS: oxyCODONE HCL 5 MG TABLET PO PRN ×2 (01:56→06:26)
[2017-07-30] MEDS: INSULIN SLIDING SCALE (NOVOLOG) 1 VIAL SQ SCH ×3 (06:44→17:39)
[2017-07-30] MEDS ORDERED: PT OWN MED DRAWER 7, Y5N ONE (09:49)
[2017-07-30] MEDS: oxyCODONE HCL 10 MG SUSTAINED ACTING TABLET PO SCH (09:57)
[2017-07-30] MEDS: SENNOSIDES/DOCUSATE COMBO (SENNA PLUS) TABLET (UD) PO SCH (09:57)
[2017-07-30] MEDS: PANTOPRAZOLE 40 MG TABLET (FP) PO SCH (09:57)
[2017-07-30] MEDS: FERROUS SO4 325 MG TABLET (FP) PO SCH ×2 (09:57→17:39)
[2017-07-30] MEDS: NIFEdipine E.R. 30 MG TABLET (FP) PO SCH (09:58)
[2017-07-30] MEDS: BUDESONIDE/FORMETEROL FUMARATE 160/4.5 mcg INHALER IH SCH (09:58)
[2017-07-30] MEDS: APIXABAN 5 MG TABLET PO SCH (09:58)
--- NOTE | 2017-07-30 11:38 | PN ---
Progress Note (short form) - Note Progress Note: 61M doing well s/p R JULIANA POD #2. Pain well controlled. No acute events overnight. Pt. denies overnight history of chest pain/shortness of breath/nausea/vomiting/ chills/sweats. (+) Void; (+) Flatus; (-) Bowel movement. (+) Walked in hallway. Labs, vital signs reviewed. PE: AAO x 3, NAD. R Hip: Dressing C/D/I. NVI distally. 59M doing well s/p R JULIANA POD #2. -Pain control. -DVT PPx: Chemical - ASA EC 81mg PO BID, Mechanical - JERMAN's, SCD's. -Incentive spirometry/pulmonary toilet. -PT/OR/Rehab, OOB to chair. -WBAT RLE. -Right hip precautions. -f/u ICU, medicine & cardiology team rec's. -Diet as tolerated. -d/c planning: f/u [facility] ([place] [facility] 08/04/2017).
--- NOTE | 2017-07-30 15:22 | DS ---
Physical Exam: SUBJECTIVE: Patient seen and examined in ICU. OBJECTIVE: Vital Signs Period Temp Pulse Resp BP Sys/Pineda Pulse Ox Last 24 Hr 98.1 F-99.5 F 71-77 16-22 142-156/71-89 99-99 PHYSICAL EXAM GENERAL: Awake, alert, and fully oriented. LUNGS: Breath sounds CTA. HEART: Regular rate and rhythm, S1, S2 ABDOMEN: Soft, nontender, not distended, normoactive bowel sounds, no guarding, no rebound, no masses. MUSCULOSKELETAL: Normal range of motion at all joints. No bony deformities or tenderness. No CVA tenderness. UPPER EXTREMITIES: 2+ pulses, warm, well-perfused. No cyanosis. No clubbing. Cap refill <2 seconds. No peripheral edema. LOWER EXTREMITIES: Right hip surgical dressing c/d/i. Full sensation and movement to toes. NEUROLOGICAL: Cranial nerves II-XII intact. Normal speech. LABS Laboratory Results - last 24 hr 07/28/17 07/30/17 07/30/17 16:16 05:44 12:27 POC Glucometer [id number] Free T3 1.7 L HOSPITAL COURSE: Date of Admission:07/27/17 Date of Discharge: 07/30/17 Minutes to complete discharge: 40 Discharge Summary Reason For Visit: RIGHT HIP OSTEOARTHRITIS Hospital Course: The patient is a 61-year-old morbidly obese man, with a history of diabetes, hypertension, hyperlipidemia, paroxysmal atrial fibrillation/flutter, status post right total hip replacement on 07/27/17, was found to be bradycardic. The surgery was uneventful. Total right hip replacement --POD #2 --minimal pain --ambulated with PT Afib/aflutter Bradycardia --patient was seen and evaluated preoperatively on 07/21, layout technician recommended amiodarone 200mg daily, Toprol XL 25mg daily and diltiazem 480mg daily --patient did not take the amiodarone or the Toprol XL but did take diltiazem , last dose on morning of surgery --pre-induction HR 50; dropped to 30s in PACU --07/27 overnight ECG junctional rhythm @ 44bpm --BP has remained stable --d/c Toprol XL and diltiazem --start nifedipine for BP control --TFTs c/w early amiodorone usage Hypoglycemia --resolved Hypertension --nifedipine NIDDM --restart home oral hypoglycemics Condition: Stable - Instructions Diet, Activity, Other Instructions: Make an appointment with Dr Randolph for evaluation on 08/04/17. You have been given a referral for Dr. Gonzalez who was your layout technician here in the hospital. You should make an appointment with him within 2 weeks. Use your walker to help walk around the house. Visiting Nurse Services have been arrainged for you. They will make a visit in the next couple of days- up to 1 week. Use your incentive spirometer 10 times every hour until you follow up with your surgeon. Only sit in high chairs. If you sit in a short chair, your hip may become too flexed and cause damage. Sleep on your back with a pillow between your legs. Take aspirin 81mg twice daily until you follow up with your surgeon. Return to ED for dizziness, lightheadedness, chest pain, shortness of breath, foul smelling drainage from wound, redness around surgical site or any other concerns. Thank you for choosing us to provide your healthcare needs. Referrals: Senthil Randolph MD [Staff Physician] - Erasto Gonzalez MD [Staff Physician] - Disposition: HOME - Home Medications Comprehensive Discharge Medication List: Ambulatory Orders Apixaban [Eliquis] 5 mg PO BID 07/15/17 Atorvastatin Ca [Lipitor] 10 mg PO DAILY 07/15/17 Ferrous Sulfate [Feosol] 325 mg PO BID 07/15/17 Glyburide 10 mg PO DAILY 07/15/17 Metformin HCl [Glucophage] 1,000 mg PO BID 07/15/17 Sitagliptin Phosphate [Januvia] 100 mg PO DAILY 07/15/17 Budesonide/Formeterol Fumarate [SYMBICORT 160/4.5mcg -] 1 inh PO BID 07/27/17 Amiodarone HCl 100 mg PO DAILY #30 tab 07/30/17 Nifedipine ER [Procardia XL -] 30 mg PO DAILY #30 tab.er.24 07/30/17 Oxycodone HCl/Acetaminophen [Percocet 10-325 mg Tablet] 1 each PO Q6H #20 tablet MDD 4 07/30/17 This patient is new to me today: Yes Date on this admission: 07/30/17 Emergency Visit: No Critical Care patient: No - Discharge Referral Referred to [facility] No
[2017-07-30 16:14] VITALS: BP 149/76; PULSE 76; TEMP 99.1
--- NOTE | 2017-07-30 18:33 | EKG ---
Test Reason : Blood Pressure : / mmHG Vent. Rate : 063 BPM Atrial Rate : 063 BPM P-R Int : 204 ms QRS Dur : 102 ms QT Int : 410 ms P-R-T Axes : 046 035 045 degrees QTc Int : 419 ms WHEN COMPARED WITH ECG OF 28-JUL-2017 10:01, SINUS RHYTHM HAS REPLACED JUNCTIONAL RHYTHM Confirmed by RUIZ CLAYTON MD ([id number]) on 07/30/2017 6:32:48 PM Referred By: Medardo Randolph Confirmed By:RUIZ CLAYTON MD
--- NOTE | 2017-08-02 11:59 | PATH ---
Surgical Pathology Report Patient Name: TRUNG SANCHES Med. Rec. #: [id number] /Age/Gender: 1955 (Age: 61) / M Account: [id number] Location: [facility] Taken: 07/27/2017 Received: 07/27/2017 Reported: 08/02/2017 Physicians: Senthil Randolph M.D. Specimen(s) Received FEMORAL HEAD RIGHT Clinical History Right hip osteoarthritis Final Diagnosis BONE, RIGHT FEMORAL HEAD, REPLACEMENT: DEGENERATIVE JOINT DISEASE. Electronically Signed Gamaliel Luis M.D. Gross Description Received in formalin, labeled "femoral head right," is a 5.0 x 5.0 x 4.7 cm. femoral head with a 1.8 cm in length portion of femoral neck attached. The margin of resection is smooth. No areas of eburnation are identified. The articular surface is laureano-yellow and diffusely granular. The underlying trabecular bone is yellow and hard. A metals sales representative section is submitted in one cassette, following decalcification. 07/28/2017 [facility]07/28/2017
== END 2017-07-30 19:04 | disposition home or self-care (01) | DRG 470 ==
LOC: FM/S 09:37 → J2W 09:37 → UNDOADMIN 09:37 → FM/S 18:34 → J2W 07-28 01:48 → FM/S 07-28 01:48
PROVIDERS: ADMIT Internal Medicine; ATTEND Orthopaedic Surgery Orthopaedic Surgery of the Spine
PROC: 0SR9049 Replacement of Right Hip Joint with Ceramic on Polyethylene Synthetic Substitute, Cemented, Open Approach (ICD-10-PCS; principal; 2017-07-27 16:43)
DX: M16.11 Unilateral primary osteoarthritis, right hip (principal); I48.92 Unspecified atrial flutter; Z68.41 Body mass index [BMI] 40.0-44.9, adult; E66.01 Morbid (severe) obesity due to excess calories; I10 Essential (primary) hypertension; E78.5 Hyperlipidemia, unspecified; I48.91 Unspecified atrial fibrillation; R00.1 Bradycardia, unspecified; E11.69 Type 2 diabetes mellitus with other specified complication; Z87.891 Personal history of nicotine dependence; Z79.84 Long term (current) use of oral hypoglycemic drugs
CPT/HCPCS: 36415; 73502-TC-RT; 80048; 84439; 84443; 84481; 85027; 86803; 87389; 88304-TC; 88311-TC; 93005; 93010; 94010; 94760; 97116-GP; 97161-GP